=== PATIENT | male | born 1950 | race Caucasian/White ===

== ENCOUNTER 2017-06-07 14:38 | Emergency (ER) | payer MEDICARE, OTHER ==
[2017-06-07] MEDS: DEXAMETHASONE 10 MG/ML 1 ML INJ IM (17:18)
[2017-06-07] MEDS: KETOROLAC 30 MG INJ IM (17:19)
[2017-06-07] MEDS: CEFTRIAXONE 1 GM INJ IM (17:26)
[2017-06-07] MEDS: LIDOCAINE 1% (MDV) 20 ML INJ SC (17:26)
[2017-06-07 18:08] LABS: ADD UMIC YES; UR ASCORBIC ACID NEGATIVE (NEGATIVE); UR BACTERIA MANY /HPF (NONE SEEN); UR BILIRUBIN (Dip) NEGATIVE (NEGATIVE); UR BLOOD (Dip) 2+ mg/dL (NEGATIVE); UR CLARITY CLEAR (CLEAR); UR COLOR YELLOW (YELLOW); UR GLUCOSE (Dip) NEGATIVE (NEGATIVE); UR KETONES (Dip) NEGATIVE (NEGATIVE); UR LEUKOCYTE ESTERASE (Dip) 1+ Leu/ul (NEGATIVE); UR NITRITE (Dip) NEGATIVE (NEGATIVE); UR RBC 0 /HPF (0-5); UR SPECIFIC GRAVITY (Dip) 1.003 (1.003-1.030); UR TOTAL PROTEIN (Dip) NEGATIVE (NEGATIVE); UR UROBILINOGEN (Dip) NEGATIVE (NEGATIVE); UR WBC 11 /HPF (0-5)
== END 2017-06-07 18:40 | disposition home or self-care (01) ==
LOC: FTE 14:38
DX: N45.1 Epididymitis (principal); N45.2 Orchitis
CPT/HCPCS: 76870; 81001; 87086; 87591; 96372; 99285-25